=== PATIENT | female | born 1970 | race Caucasian/White ===

== ENCOUNTER 2019-12-09 05:45 | Day surgery (SDC) | payer OTHER ==
[2019-12-05 10:13] LABS: BASOPHILS % (AUTO) 0.3 % (0.0-5.0); EOSINOPHILS % (AUTO) 0.9 % (0.0-8.0); HEMATOCRIT 43.7 % (36-48); LYMPHOCYTES % (AUTO) 23.4 % (21.0-51.0); MEAN CORPUSCULAR HEMOGLOBIN 30.3 pg (27.0-33.0); MEAN CORPUSCULAR HGB CONC 33.2 g/dL (32.0-36.0); MEAN CORPUSCULAR VOLUME 91.4 fL (79-99); MONOCYTES % (AUTO) 5.4 % (3.0-13.0); NEUTROPHILS % (AUTO) 69.7 % (40.0-77.0); PLATELET COUNT (AUTO) 295 K/uL (130-400); RED BLOOD CELL COUNT(AUTO) 4.78 MIL/uL (4.00-5.50); RED CELL DISTRIBUTION WIDTH 13.1 % (11.0-15.5); WHITE BLOOD COUNT (AUTO) 14.4 K/uL (4.8-10.8)
[2019-12-05 10:19] LABS: CREATININE 0.8 mg/dL (0.5-1.5); POTASSIUM 4.5 mmol/L (3.5-5.1)
--- NOTE | 2019-12-06 11:20 | NUR ---
LABS ABNORMAL WBC REPORTED TO DR. Alexandre RODRÍGUEZ , NO FURTHER ORDERS GIVEN.
[2019-12-06 17:42] VITALS: BP 107/68
[~2019-12-09] VITALS: Ht 177.8 cm; Wt 108.5 kg
[2019-12-09] VITALS (18 sets, daily range): BP systolic 95–109; BP diastolic 57–66
[~2019-12-09 05:45] MED LIST: BUTA1CAP16 PO; CETI-89 PO; CHOL100046 PO; CYCL10TA7 PO; DICL2100G TP; FLUT16H NASAL; GABA-533 PO; GABA600T10 PO; MILN50TA PO; PANT40TA54 PO; TRAM1TAB PO; URSO500T10 PO
[2019-12-09] MEDS ORDERED: LACTATED RINGERS 1000ML 1,000 ML IV ONE (06:35)
[2019-12-09] MEDS ORDERED: CLINDAMYCIN 900 MG/D5% WATER 50 ML IV ONE (06:35)
--- NOTE | 2019-12-09 06:35 | NUR ---
POTENTIAL FOR INFECTION: NO CLIPPING NEEDED TO RIGHT SHOULDER / RT UPPER ARM AND AXILLAE ASSESSED PER SLOANE DE LA CRUZ. WIPED RT SHOULDER, UPPER ARM AND AXILLAE WITH CEM: 2% CHLORHEXIDINE GLUCONATE PREP PATIENTS PRE-OP SKIN PREP PER SLOANE DE LA CRUZ.
[2019-12-09] MEDS ORDERED: LIDOCAINE PF 2% 5ML ABBOJECT ONE (07:12)
[2019-12-09] MEDS ORDERED: DEXAMETHASONE SOD PHOSPHATE 10MG/ML 1ML VIAL ONE (07:13)
[2019-12-09] MEDS ORDERED: PROPOFOL 10 MG/ML 20ML VIAL IV ONE (07:13)
[2019-12-09] MEDS ORDERED: NEOSTIGMINE 5MG/5ML SYR IV ONE (07:13)
[2019-12-09] MEDS ORDERED: ROCURONIUM 10MG/1ML SYR 10 MG/ML ML ONE (07:13)
[2019-12-09] MEDS ORDERED: ONDANSETRON HCL 4 MG/2 ML VIAL ONE (07:13)
[2019-12-09] MEDS ORDERED: MIDAZOLAM HCL 1 MG/ML 2ML VIAL ONE (07:13)
[2019-12-09] MEDS ORDERED: GLYCOPYRROLATE 1 MG/5 ML SYRINGE ONE (07:13)
[2019-12-09] MEDS ORDERED: FENTANYL CITRATE PF 50 MCG/1 ML 2ML VIAL ONE ×2 (07:14→08:37)
[2019-12-09] MEDS ORDERED: PHENYLEPHRINE HCL 10 MG/ML 1ML VIAL IV ONE (07:15)
[2019-12-09] MEDS ORDERED: ROPIVACAINE 0.5% 5MG/ML 30ML IJ ONE (07:23)
[2019-12-09] MEDS ORDERED: EPINEPHRINE 1 MG/ML 30ML VIAL IJ ONE (07:28)
[2019-12-09] MEDS ORDERED: EPHEDRINE SULFATE 50 MG/ML AMPULE ONE (08:35)
[2019-12-09] MEDS ORDERED: ACET-66 PO (10:56)
[2019-12-09] MEDS ORDERED: CLIN300C9 PO (10:56)
[2019-12-09] MEDS ORDERED: TRAM50TA4 PO (10:56)
--- NOTE | 2019-12-09 12:10 | NUR ---
POST OP RECEIVED PT POST OP. REPORT FROM [facility] PACU. PT IN NO DISTRESS WITH DRESSING TIMES 3 CLEAN AND DRY AND SLING ON. WILL CONTINUE TO MONITOR PT. PT ORIENTED TO ROOM AND CALL LIGHT
--- NOTE | 2019-12-09 13:10 | NUR ---
DISCHARGE D/C INSTRUCTIONS GIVEN TO PT AND SPOUSE. BOTH VOICED UNDERSTANDING. RT SHOULDER DRESSINGS CLEAN AND DRY AND PT WITH SLING. PT TAKEN OUT BY JORGE HENRY IN NO DISTRESS
== END 2019-12-09 13:10 | disposition home or self-care (01) ==
LOC: DAH 05:45
PROVIDERS: ATTEND Orthopaedic Surgery
DX: M75.101 Unspecified rotator cuff tear or rupture of right shoulder, not specified as traumatic (principal); Z11.59 Encounter for screening for other viral diseases; M19.011 Primary osteoarthritis, right shoulder; M25.811 Other specified joint disorders, right shoulder; M24.111 Other articular cartilage disorders, right shoulder; M25.511 Pain in right shoulder; G89.29 Other chronic pain; M79.7 Fibromyalgia; Z88.0 Allergy status to penicillin; Z88.5 Allergy status to narcotic agent; Z88.8 Allergy status to other drugs, medicaments and biological substances; Z91.040 Latex allergy status; Z79.899 Other long term (current) drug therapy; Z98.890 Other specified postprocedural states; Z90.710 Acquired absence of both cervix and uterus; Z87.891 Personal history of nicotine dependence; Z82.49 Family history of ischemic heart disease and other diseases of the circulatory system; Z72.89 Other problems related to lifestyle; Z82.5 Family history of asthma and other chronic lower respiratory diseases
CPT/HCPCS: 29824; 29826; 29827; 29828; 36415; 64415; 76942; 80048; 85025; A4215; A4221; A4222; A4223; A4565; A4600; A4649 ×6; A4663; A4930; A5120; A6204; C1713 ×3; G0168; J0171; J1100; J2001; J2250; J2370; J2405; J2704; J2710; J2795; J3010 ×2; J3490 ×3; J7030 ×2; J7120; U0003

== ENCOUNTER → 2020-10-22 | Outpatient (CLI) | payer OTHER ==
[~2020-10-22] MED LIST changes: +ACET-66 PO; +CLIN300C10 PO; +IOHEXOL 350 MG/ML 100ML INFUS..BTL IV ONE; +TRAM50TA4 PO
== END | disposition home or self-care (01) ==
LOC: RAH 07:36
PROVIDERS: ATTEND Internal Medicine
DX: R10.9 Unspecified abdominal pain (principal); Z90.49 Acquired absence of other specified parts of digestive tract
CPT/HCPCS: 74178; Q9967

== ENCOUNTER 2023-07-06 10:17 | Day surgery (SDC) | payer OTHER ==
[~2023-07-06] VITALS: Ht 177.8 cm; Wt 104.8 kg
[2023-07-06] VITALS (11 sets, daily range): BP systolic 95–117; BP diastolic 53–68; PULSE 70–81; RESP 15–19
[~2023-07-06 10:17] MED LIST changes: -ACET-66 PO; -BUTA1CAP16 PO; -CETI-89 PO; -CHOL100046 PO; -CLIN300C10 PO; +CYCL-309 PO; -CYCL10TA7 PO; +DEXL30CA4 PO; -DICL2100G TP; +DOCU240C25 PO; +ESTR2TAB25 PO; -FLUT16H NASAL; -GABA-533 PO; +GABA300C PO; -GABA600T10 PO; -IOHEXOL 350 MG/ML 100ML INFUS..BTL IV ONE; +MULT-1258 PO; +NORT50CA PO; +ONDA4TAB10 PO; -PANT40TA54 PO; +PRUC2TAB PO; +RIZA10TA98 PO; +SEA OMEGA PO; -TRAM1TAB PO; -TRAM50TA4 PO; -URSO500T10 PO
[2023-07-06] MEDS ORDERED: 0.9%NACL 1000ML 1,000 ML IV ONE (11:05)
[2023-07-06] MEDS ORDERED: PROPOFOL 10 MG/ML 20ML VIAL IV ONE ×2 (13:47→14:07)
== END 2023-07-06 15:32 | disposition home or self-care (01) ==
LOC: ENDO 10:17 → DAH 10:17 → ENDO 15:32
PROVIDERS: ATTEND Internal Medicine Gastroenterology
DX: R93.2 Abnormal findings on diagnostic imaging of liver and biliary tract (principal); K31.89 Other diseases of stomach and duodenum; K83.8 Other specified diseases of biliary tract; K29.50 Unspecified chronic gastritis without bleeding; K20.0 Eosinophilic esophagitis; K31.84 Gastroparesis; K59.04 Chronic idiopathic constipation; K22.0 Achalasia of cardia; K76.0 Fatty (change of) liver, not elsewhere classified; F41.9 Anxiety disorder, unspecified; F32.A Depression, unspecified; M19.90 Unspecified osteoarthritis, unspecified site; M79.7 Fibromyalgia; Z90.49 Acquired absence of other specified parts of digestive tract; Z90.710 Acquired absence of both cervix and uterus; Z98.890 Other specified postprocedural states; Z86.010 Personal history of colon polyps; Z72.89 Other problems related to lifestyle; Z88.2 Allergy status to sulfonamides; Z88.8 Allergy status to other drugs, medicaments and biological substances; Z80.0 Family history of malignant neoplasm of digestive organs; Z82.49 Family history of ischemic heart disease and other diseases of the circulatory system
CPT/HCPCS: 43237; 43239; J7030 ×2; J2704 ×2; A4620; A4215 ×3; A4223; A4657; A7002; A4222; A4221; A4663; A4606; J3490